=== PATIENT | female | born 1940 | race Caucasian/White ===

== ENCOUNTER 2022-12-12 10:00 | Outpatient (RCR) | payer MEDICARE, BC, SELFPAY | END 2023-02-08 13:10 | disposition home or self-care (01) | PROVIDERS: PCP Family Medicine; Visit Provider Family Medicine | DX: N81.10 Cystocele, unspecified (principal); N81.6 Rectocele; R27.8 Other lack of coordination; R53.1 Weakness; N39.9 Disorder of urinary system, unspecified; Z51.89 Encounter for other specified aftercare | CPT/HCPCS: 97110; 97140; 97162; 97535 ==